=== PATIENT | female | born 1975 | race American Indian/Alaskan Native ===

== ENCOUNTER 2016-12-08 15:00 | Outpatient (CLI) | payer OTHER | END 2016-12-08 15:01 | disposition home or self-care (01) | LOC: LABHHL 15:00 | PROVIDERS: ATTEND Internal Medicine Gastroenterology | DX: K21.9 Gastro-esophageal reflux disease without esophagitis (principal); K30 Functional dyspepsia; R13.10 Dysphagia, unspecified | CPT/HCPCS: 88305; 88342 ==